=== PATIENT | male | born 1975 | race Caucasian/White ===

== ENCOUNTER 2024-11-08 01:32 | Emergency (ER) | payer OTHER, SELFPAY ==
[2024-11-08] VITALS (8 sets, daily range): BP systolic 113–135; BP diastolic 73–82; PULSE 72–80; RESP 18; TEMP 35.7; O2SAT 94–97; BMI 34.9
--- NOTE | 2024-11-08 02:23 | ED.GENADULT ---
HPI - General Adult General Chief complaint: Abdominal Pain Stated complaint: hernia belly button Time Seen by Provider: 11/08/24 02:17 Source: patient Mode of arrival: Ambulatory History of Present Illness HPI narrative: 49-year-old male with history of obesity, and also known ventral hernia, had acute pain in the area of his hernia for the last 1 hour prior to arrival, seemed to get better, then recurred again. No nausea or vomiting or diarrhea. No fevers or chills. No injury trauma new activites. No painful or frequent urination. No cough dyspnea chest pain. No treatments tried so far. Related Data Home Medications ?Medication ?Instructions ?Recorded ?Confirmed atorvastatin 40 mg tablet 40 mg PO DAILY 11/08/24 11/08/24 blood-glucose sensor (FreeStyle 11/08/24 11/08/24 Rachid 3 Sensor device) fenofibrate nanocrystallized 145 145 mg PO DAILY 11/08/24 11/08/24 mg tablet losartan 25 mg tablet 25 mg PO DAILY 11/08/24 11/08/24 metformin 500 mg tablet,extended 1,000 mg PO BID 11/08/24 11/08/24 release 24 hr Allergies Allergy/AdvReac Type Severity Reaction Status Date / Time No Known Drug Allergies Allergy Verified 11/08/24 01:48 Patient History Social History Smoking Status: Never smoker Smoking Status: Never smoker Exam Narrative Exam Narrative: GENERAL: Well-developed patient, in mild distress. HEAD: Atraumatic. Normocephalic. EYES: Pupils equal round and reactive. Extraocular motions intact. No scleral icterus. No injection or drainage. ENT: Nose without bleeding, purulent drainage. Throat without erythema, tonsillar hypertrophy or exudate. Airway patent. NECK: Trachea midline. Non tender CARDIOVASCULAR: Regular rate and rhythm without murmurs, gallops, or rubs. RESPIRATORY: Clear to auscultation. Breath sounds equal bilaterally. No wheezes, rales, or rhonchi. GASTROINTESTINAL: Obese pannus, umbilical hernia present, not terribly tender, has some discomfort in the vicinity perimbilical, difficult to tell any persisiting hernia due to obesity. No guarding. Nondistended. EXTREMITIES: No edema or joint tenderness. BACK: Nontender without deformity or crepitance. No flank tenderness. NEURO: AOx3. Motor functions grossly nonfocal. SKIN: No rash or erythema of visible areas Initial Vital Signs Initial Vital Signs: Vital Signs Temperature 96.2 F L 11/08/24 01:50 Pulse Rate 80 11/08/24 01:50 Respiratory Rate 18 11/08/24 01:50 Blood Pressure 135/82 11/08/24 01:50 Pulse Oximetry 94 11/08/24 01:50 Oxygen Delivery Method Room Air 11/08/24 01:50 Course Orders Ordered: Discontinued Medications Sodium Chloride (Normal Saline 0.9%) 1,000 mls @ 500 mls/hr IV BOLUS ONE Stop: 11/08/24 07:27 Tramadol HCl (Tramadol 50 Mg Prepack) 1 bottle MISC DIRECTED ONE Stop: 11/08/24 05:22 Vital Signs Vital signs: Vital Signs - 8 hr 11/08/24 01:50 11/08/24 03:06 11/08/24 03:07 Temperature 96.2 F L Pulse Rate 80 77 Respiratory Rate 18 Blood Pressure 135/82 118/75 Pulse Oximetry 94 96 Oxygen Delivery Method Room Air 11/08/24 03:07 11/08/24 03:30 11/08/24 03:30 Temperature Pulse Rate 77 75 Respiratory Rate Blood Pressure 117/78 Pulse Oximetry 95 96 Oxygen Delivery Method 11/08/24 04:07 11/08/24 04:08 11/08/24 04:08 Temperature Pulse Rate 76 72 Respiratory Rate Blood Pressure 126/75 Pulse Oximetry 97 95 Oxygen Delivery Method 11/08/24 04:30 11/08/24 04:30 11/08/24 05:00 Temperature Pulse Rate 74 Respiratory Rate Blood Pressure 133/80 113/73 Pulse Oximetry 94 Oxygen Delivery Method 11/08/24 05:00 Temperature Pulse Rate 79 Respiratory Rate Blood Pressure Pulse Oximetry 94 Oxygen Delivery Method Room Air Medical Decision Making Lab Data Lab results reviewed: Yes I reviewed the patient's lab results. Lab results narrative: White blood cell count 7200, hemoglobin 15.2, platelets adequate. Glucose 109. Renal function normal. Serum CO2 normal. Electrolytes unremarkable. Liver functions and lipase normal. 11/08/24 03:02 11/08/24 03:02 Labs: Lab Results 11/08/24 Range/Units 03:02 WBC 7.2 (4.5-11.0) X10^3/uL RBC 5.19 (4.5-5.9) X10^6/uL Hgb 15.2 (13.5-17.5) g/dL Hct 45.0 (41-53) % MCV 86.7 (80-100) fL MCH 29.2 (26-34) PG MCHC 33.7 (30-36) % RDW 14.7 (11.6-14.8) % Plt Count 195 (150-400) X10^3/uL Neut % (Auto) 57.8 (50-75) % Lymph % (Auto) 32.3 (25-40) % [place] % (Auto) 7.2 (3-14) % Eos % (Auto) 2.4 (2-4) % Baso % (Auto) 0.3 (0-2) % Neut # (Auto) 4200 (1484-2203) /uL Lymph # (Auto) 2300 (1673-5446) /uL [place] # (Auto) 500 (0-900) /uL Eos # (Auto) 200 (0-450) /uL Baso # (Auto) 0 (0-100) /uL Sodium 139 (137-145) mmol/L Potassium 3.8 (3.4-5.1) mmol/L Chloride 107 (98-107) mmol/L Carbon Dioxide 26 (22-32) mmol/L BUN 14 (9-20) mg/dL Creatinine 0.71 (0.66-1.25) mg/dL Estimated GFR > 60 (>60) mL/min BUN/Creatinine Ratio 19.7 (6-22) Glucose 109 H (70-99) mg/dL Lactate 0.9 (0.7-2.1) mmol/L Calcium 9.1 (8.4-10.2) mg/dL Total Bilirubin 0.5 (0.2-1.3) mg/dL AST 36 (17-59) IU/L ALT 45 (<50) IU/L Alkaline Phosphatase 67 (38-126) U/L Total Protein 7.3 (6.3-8.2) g/dL Albumin 4.4 (3.5-5.0) g/dL Globulin 2.9 (1.7-4.1) g/dL Albumin/Globulin Ratio 1.5 (1.0-2.8) Lipase 102 (23-300) U/L MDM Narrative Medical decision making narrative: 49-year-old male with history of ventral umbilical hernia, awaiting possible future elective repair with prescribed weight loss. Pain earlier today seemed to get better, then recurred. Patient would like imaging when we discussed option. Reducible umbilical hernia on exam without significant tenderness. Could have pain from sliding friction effect of recently reduced umbilical hernia, vs some other process. WBC Hb LFTs normal. Renal function normal. CT Abd/P ordered. Patient agreeable. CT abdomen and pelvis with IV contrast. Impressions: ?Bilateral hydronephrosis [id number] with abrupt tapering of the proximal ureters versus parapelvic renal cysts. Recommend CT IV P for further evaluation. No evidence of colitis diverticulitis or bowel obstruction. Appendix not visualized.? See tele radiology report. Copy report given to patient, who elects to have CT IVP study as an outpatient. Feels better, declines pain meds now, okay with homepak, Tramadol homepack dispensed. FU with PCP advised later this week, and with general surgery for elective ventral hernia repair options consultation. Home with . Return precautions discussed. Discharge Plan Departure Patient Disposition: Home Clinical Impression: Abdominal pain, Ventral hernia Activity Restrictions/Additional Instructions: History of umbilical ventral hernia, increased pain and some prominence in the area of swelling, the seemed to get better then recurred then got better once again. CT abdomen and pelvis imaging did not confirm any visualized hernia, no bowel obstruction changes either. There was mention of some tapering appearance of both ureters, and suggestion of a CT IV P test that is usually done as an outpatient. Consider having the CT IVP study done as an outpatient to further evaluate the ureteral concerns, to make sure there is good flow to both urine nurse into the bladder. Take [id number] pain medication as needed for pain control if needed. Home pack of tramadol analgesic pain medication also provided, if needed. Follow up with your regular provider later this week. Return to this/nearest emergency department for any change worsening symptoms or any concerns prior. You had IV contrast, and you have been prescribed metformin, consider stopping the med informed for the next couple of days and then restarting, as there can be toxicity in association with metformin with IV contrast. Prescriptions: No Action atorvastatin 40 mg tablet 40 mg PO DAILY losartan 25 mg tablet 25 mg PO DAILY metformin 500 mg tablet extended release 24 hr 1,000 mg PO BID fenofibrate nanocrystallized 145 mg tablet 145 mg PO DAILY (DME) [employer] Rachid 3 Sensor Device MISCELLANEOUS Q2W Referrals: Nav Mercado MD [Physician, General Surgery] Stand Alone Forms: Patient Portal/API
[2024-11-08 03:14] LABS: Add Manual Diff / Slide Review NO; Hematocrit 45.0 % (41-53); Hemoglobin 15.2 g/dL (13.5-17.5); Lymphocytes Absolute Auto 2300 /uL (1100-4500); Mean Corpuscular HGB Conc 33.7 % (30-36); Mean Corpuscular Hemoglobin 29.2 PG (26-34); Mean Corpuscular Volume 86.7 fL (80-100); Platelet Count 195 X10^3/uL (150-400)
[2024-11-08 03:23] LABS: Lactate (Lactic Acid) 0.9 mmol/L (0.7-2.1)
[2024-11-08 03:24] LABS: Alanine Aminotransferase 45 IU/L (<50); Albumin 4.4 g/dL (3.5-5.0); Albumin Globulin Ratio 1.5 (1.0-2.8); Alkaline Phosphatase 67 U/L (38-126); Blood Urea Nitrogen 14 mg/dL (9-20); Calcium 9.1 mg/dL (8.4-10.2); Carbon Dioxide 26 mmol/L (22-32); Chloride 107 mmol/L (98-107); Estimated Glomerular Filt Rate > 60 mL/min (>60); Globulin 2.9 g/dL (1.7-4.1); Glucose 109 mg/dL (70-99); HEMOLYSIS < 15 (0-50); Lipase 102 U/L (23-300); Potassium 3.8 mmol/L (3.4-5.1); Sodium 139 mmol/L (137-145); Total Protein 7.3 g/dL (6.3-8.2)
--- NOTE | 2024-11-08 03:50 | DI.CT.S_ITS ---
PROCEDURE: CT ABDOMEN PELVIS W CON INDICATIONS: Abdominal pain. TECHNIQUE: After the administration of intravenous contrast, axial sections acquired from the lung bases to the pubic symphysis. Coronal and sagittal reformats were performed. For radiation dose reduction, the following was used: automated exposure control, adjustment of mA and/or kV according to patient size. COMPARISON: None. FINDINGS: Image quality: Diagnostic. Lower Chest: No significant findings. ABDOMEN: Liver: No solid mass. Moderate hepatic steatosis is seen. Gallbladder: Small stone in dependent portion of gallbladder lumen. No gallbladder wall thickening. Biliary ducts: No biliary dilation. Pancreas: No ductal dilation. Spleen: Size is within normal limits. Adrenal Glands: No adrenal nodules. Kidneys and Ureters: Bilateral peripelvic renal cysts are seen. No hydronephrosis. No solid mass. No complex renal cystic lesion which requires follow up. Stomach and Bowel: There is no bowel obstruction or abnormal bowel wall thickening. No abscess collection. No evidence of acute appendicitis or diverticulitis. Peritoneum: No abnormal intraperitoneal fluid. No free air. Ventral Wall: Moderate size ventral hernia and rectus diastasis containing fat only. Abdominal Nodes: No retroperitoneal or mesenteric adenopathy by size criteria. Vessels: Aorta and inferior vena cava are normal in size. PELVIS: Pelvic Organs: Unremarkable. Bladder: No bladder wall thickening, accounting for underdistention. Pelvic Nodes: No enlarged lymph nodes. Miscellaneous: No inguinal hernias are seen. Bones: No aggressive osseous abnormality. IMPRESSION: 1. Likely bilateral peripelvic renal cysts more prominent on the left side. Bilateral UPJ stenosis cannot be entirely excluded. Clinical correlation is recommended. No obstructing stone is seen. No hydroureter. Normal appearing urinary bladder. 2. No bowel obstruction or abnormal bowel wall thickening. No free fluid or free air. 3. Cholelithiasis without CT evidence of acute cholecystitis. Dictated by: Delta Fritz M.D. on 11/08/2024 at 9:14 Approved by: Delta Fritz M.D. on 11/08/2024 at 9:19
[2024-11-08] MEDS: TRAMADOL 50 MG PREPACK 1 BOTTLE MISC (05:30)
== END 2024-11-08 05:39 | disposition home or self-care (01) ==
PROVIDERS: Emergency Provider Emergency Medicine
DX: R10.9 Unspecified abdominal pain (principal); K43.9 Ventral hernia without obstruction or gangrene
CPT/HCPCS: 36415; 74177; 80053; 83605; 83690; 85025; 99283; 99284; Q9967